=== PATIENT | female | born 1975 | race Caucasian/White ===

== ENCOUNTER 2017-04-24 06:45 | Day surgery (SDC) | payer BC ==
[~2017-04-24] VITALS: Ht 177.8 cm; Wt 86.2 kg
[~2017-04-24 06:45] MED LIST: BACTRIM DS1 TAB PO; CIPROFLOXACN500 MG PO; LORTAB 5 OR; XANAX0.25 MG PO
[2017-04-24 09:47] VITALS: BP 96/57
== END 2017-04-24 09:40 | disposition home or self-care (01) | DRG 392 ==
LOC: ENDO 06:45 → ORM 07:00 → ENDO 08:00
PROVIDERS: ATTEND Internal Medicine Gastroenterology
PROC: 0FPB8DZ Removal of Intraluminal Device from Hepatobiliary Duct, Via Natural or Artificial Opening Endoscopic (ICD-10-PCS; principal; 2017-04-24)
DX: R10.11 Right upper quadrant pain (principal); K29.70 Gastritis, unspecified, without bleeding; R10.13 Epigastric pain; R79.89 Other specified abnormal findings of blood chemistry